=== PATIENT | female | born 1980 | race Caucasian/White ===

== ENCOUNTER 2017-11-25 09:38 | Outpatient (CLI) | payer OTHER | END 2017-11-25 17:00 | disposition home or self-care (01) | LOC: TOM 09:38 | DX: J32.8 Other chronic sinusitis (principal) ==

== ENCOUNTER 2021-01-17 08:00 | Outpatient (CLI) | payer OTHER | END 2021-01-17 08:30 | disposition home or self-care (01) | LOC: PPH VACUNA 08:00 | PROVIDERS: ATTEND Emergency Medicine Pediatric Emergency Medicine | DX: Z23 Encounter for immunization (principal) ==

== ENCOUNTER 2021-04-09 17:09 | Emergency (ER) | payer OTHER ==
[~2021-04-09] VITALS: Ht 149.9 cm; Wt 46.3 kg
[2021-04-09] MEDS ORDERED: IRBESARTAN150 MG (17:41)
[2021-04-09] MEDS ORDERED: METOPROLOL SUCC25 MG (17:41)
== END 2021-04-09 18:39 | disposition home or self-care (01) ==
LOC: ER 17:09
DX: M94.0 Chondrocostal junction syndrome [Tietze] (principal)

== ENCOUNTER 2021-10-01 08:31 | Outpatient (CLI) | payer OTHER ==
[~2021-10-01 08:31] MED LIST: IRBESARTAN150 MG; METOPROLOL SUCC25 MG
== END 2021-10-01 08:32 | disposition home or self-care (01) ==
LOC: SONOGRAMA 08:31
DX: R10.11 Right upper quadrant pain (principal)

== ENCOUNTER 2022-01-20 10:19 | Emergency (ER) | payer OTHER ==
[~2022-01-20] VITALS: Ht 149.9 cm; Wt 48.1 kg
[2022-01-20] MEDS ORDERED: KETO10TA2 PO (14:54)
== END 2022-01-20 15:55 | disposition home or self-care (01) ==
LOC: ER 10:19
DX: R10.2 Pelvic and perineal pain (principal); R30.0 Dysuria; N83.202 Unspecified ovarian cyst, left side

== ENCOUNTER 2022-01-28 09:28 | Outpatient (CLI) | payer OTHER ==
[~2022-01-28 09:28] MED LIST changes: +KETO10TA2 PO
== END 2022-01-28 09:44 | disposition home or self-care (01) ==
LOC: MRI 09:28 → RAD 09:28
PROVIDERS: ATTEND Internal Medicine
DX: M23.42 Loose body in knee, left knee (principal)

== ENCOUNTER 2024-09-27 07:56 | Outpatient (CLI) | payer OTHER | END 2024-09-27 08:04 | disposition home or self-care (01) | LOC: SONOGRAMA 07:56 | PROVIDERS: ATTEND Internal Medicine Gastroenterology | DX: R16.1 Splenomegaly, not elsewhere classified (principal) ==